=== PATIENT | female | born 1990 | race Caucasian/White ===

== ENCOUNTER 2016-07-30 08:07 | Emergency (ER) | payer BC ==
[~2016-07-30 08:07] MED LIST: ONDA4TAB10 PO
[2016-07-30 08:10] VITALS: BP 100/59
[2016-07-30] MEDS ORDERED: IV NORMAL SALINE 1,000ML 1,000 ML IV ONE (08:30)
[2016-07-30] MEDS ORDERED: ONDANSETRON PF 4 MG/2 ML VIAL. IV ONE (08:30)
[2016-07-30] MEDS ORDERED: FENTANYL PF 100 MCG/2 ML VIAL. IV ONE (08:45)
--- NOTE | 2016-07-30 08:46 | ED.ADGEN ---
Past History Past Medical History: Seizure Past Surgical History: No Surgical History Smoking: Non-smoker Alcohol Use: None Drug Use: None Adult General Chief Complaint Chief Complaint Abdominal pain, nausea and vomiting HPI HPI Patient is a 25 year old female who presents with upper abdominal pain and nausea and vomiting since waking this morning. Patient denies any fevers, no prior similar symptoms, no prior abdominal surgeries. Her last menstrual cycle was 3 weeks ago. She is not taking any symptom controlling medication. Patient reports she had a seizure yesterday, witnessed by her boyfriend, described as tonic-clonic. She did not lose her urine, reports she did bite her tongue. 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 She had a normal CT of her head in May of this year. She cannot recall her seizure medication. She cannot recall her neurologist name , she has a history of being noncompliant per the medical records. She has seen Dr. Gracia in the past. Review of Systems Review of Systems Constitutional: Denies fever or chills [] Eyes: Denies change in visual acuity, redness, or eye pain [] HENT: Denies nasal congestion or sore throat [] Respiratory: Denies cough or shortness of breath [] Cardiovascular: Denies chest pain GI: Denies bloody stools or diarrhea [] : Denies dysuria or hematuria [] Musculoskeletal: Denies back pain or joint pain [] Integument: Denies rash or skin lesions [] Neurologic: Denies headache, focal weakness or sensory changes [] Current Medications Current Medications Current Medications Medications (Trade) Dose Ordered Sig/Anant Start Time Stop Time Status Last Admin Dose Admin Diphenhydramine HCl (Benadryl) 25 mg 1X ONCE 07/30/16 09:40 07/30/16 09:41 DC 07/30/16 09:35 25 MG Fentanyl Citrate (Fentanyl 2ml Vial) 50 mcg 1X ONCE 07/30/16 08:45 07/30/16 08:46 DC 07/30/16 08:41 50 MCG Ketorolac Tromethamine (Toradol) 30 mg 1X ONCE 07/30/16 09:40 07/30/16 09:41 DC 07/30/16 09:35 30 MG Ondansetron HCl 4 mg 4 mg 1X ONCE 07/30/16 08:30 07/30/16 08:45 DC 07/30/16 08:37 4 MG Prochlorperazine Edisylate (Compazine) 10 mg 1X ONCE 07/30/16 09:40 07/30/16 09:41 DC 07/30/16 09:35 10 MG Sodium Chloride (Iv Sodium Chloride 0.9% 1,000ml) 1,000 ml @ 1,000 mls/hr 1X ONCE 07/30/16 08:30 07/30/16 09:29 DC 07/30/16 08:37 1,000 MLS/HR Allergies Allergies Allergies Coded Allergies Type Severity Reaction Last Updated Verified Penicillins Allergy Unknown 08/26/13 Yes Physical Exam Physical Exam Constitutional: Well developed, well nourished, no acute distress, non-toxic appearance. [] HENT: Normocephalic, atraumatic, bilateral external ears normal, oropharynx moist, no oral exudates, nose normal. [] Eyes: PERRLA, EOMI, conjunctiva normal, no discharge. [] Neck: Normal range of motion, no tenderness, supple, no stridor. [] Cardiovascular:Heart rate regular rhythm, no murmur [] Lungs & Thorax: Bilateral breath sounds clear to auscultation [] Abdomen: Bowel sounds normal, soft, no tenderness, no masses, no pulsatile masses. [] Skin: Warm, dry, no erythema, no rash. [] Back: No tenderness, no CVA tenderness. [] Extremities: No tenderness, no cyanosis, no clubbing, ROM intact, no edema. [] Neurologic: Alert and oriented X 3, normal motor function, normal sensory function, no focal deficits noted. [] Psychologic: Affect normal, judgement normal, mood normal. [] Current Patient Data Vital Signs Vital Signs Date Time Temp Pulse Resp B/P Pulse Ox O2 Delivery O2 Flow Rate FiO2 07/30/16 08:41 16 100 Room Air 07/30/16 08:10 98.0 85 Lab Results Laboratory Tests Test 07/30/16 08:25 07/30/16 09:49 Sodium Level 139mmol/L (136-145) Potassium Level 3.8mmol/L (3.5-5.1) Chloride Level 105mmol/L (98-107) Carbon Dioxide Level 27mmol/L (21-32) Anion Gap 7 (6-14) Blood Urea Nitrogen 9mg/dL (7-20) Creatinine 0.7mg/dL (0.6-1.0) Estimated GFR (Cockcroft-Gault) 102.8 BUN/Creatinine Ratio 13 (6-20) Glucose Level 99mg/dL (70-99) Calcium Level 8.8mg/dL (8.5-10.1) Total Bilirubin 0.7mg/dL (0.2-1.0) Aspartate Amino Transferase (AST) 15U/L (15-37) Alanine Aminotransferase (ALT) 17U/L (14-59) Alkaline Phosphatase 47U/L (46-116) Creatine Kinase 70U/L (26-192) Total Protein 7.7g/dL (6.4-8.2) Albumin 4.2g/dL (3.4-5.0) Albumin/Globulin Ratio 1.2 (1.0-1.7) Lipase 161U/L (73-393) POC Urine HCG, Qualitative hcg negative (Negative) EKG EKG [] Radiology/Procedures Radiology/Procedures [] Course & Med Decision Making Course & Med Decision Making Pertinent Labs and Imaging studies reviewed. (See chart for details) I reviewed patient's medical record. Her name of her medication is not listed in the chart. Labs performed, urinalysis, UCG, IV established, normal saline and Zofran given along with IV fentanyl. No seizure activity in ED, abdominal pain resolved, labs unremarkable. Pt developed headache. IV toradol, benadryl and compazine helped headache. Recommend f/u with PCP and take seizure meds. DC'd with zofran ODT. Final Impression Final Impression Nausea and vomiting Abdominal pain Seizures Problems: Dragon Disclaimer Dragon Disclaimer This electronic medical record was generated, in whole or in part, using a voice recognition dictation system. ZAINAB BASURTO MD Jul 30, 2016 08:46
[2016-07-30 09:04] LABS: ALBUMIN 4.2 g/dL (3.4-5.0); ALBUMIN/GLOBULIN RATIO 1.2 (1.0-1.7); CALCIUM 8.8 mg/dL (8.5-10.1); CREATININE 0.7 mg/dL (0.6-1.0); GFR 102.8; POTASSIUM 3.8 mmol/L (3.5-5.1); TOTAL BILIRUBIN 0.7 mg/dL (0.2-1.0); TOTAL PROTEIN 7.7 g/dL (6.4-8.2)
[2016-07-30] MEDS ORDERED: DIPHENHYDRAMINE 50 MG/ML VIAL IVP ONE (09:40)
[2016-07-30] MEDS ORDERED: PROCHLORPERAZINE 10 MG/2 ML VIAL. IV ONE (09:40)
[2016-07-30] MEDS ORDERED: KETOROLAC 30 MG/ML VIAL. IV ONE (09:40)
[2016-07-30] MEDS ORDERED: ONDA4TAB10 SL (10:07)
[2016-07-30 10:14] LABS: AMPHETAMINE/METHAMPHETAMINE NEG (NEG); BARBITURATES NEG (NEG); BENZODIAZEPINES NEG (NEG); CANNABINOIDS NEG (NEG); COCAINE NEG (NEG); METHADONE NEG (NEG); OPIATES NEG (NEG); PHENCYCLIDINE NEG (NEG)
[2016-07-30 10:17] LABS: BILIRUBIN,URINE NEG (NEG); CLARITY,URINE HAZY; COLOR,URINE YELLOW
[2016-07-30 10:18] LABS: BACTERIA,URINE FEW /HPF (0-FEW); NITRITE,URINE NEG (NEG); RBC,URINE RARE /HPF (0-2); SQUAMOUS EPITHELIAL CELL,UR MANY /LPF; UROBILINOGEN,URINE 0.2 mg/dL (0.2 mg/dL)
[2016-07-30 13:15] LABS: GLUCOSE,URINE NEG (NEG)
== END 2016-07-30 10:15 | disposition home or self-care (01) ==
LOC: ER 08:07
DX: R10.10 Upper abdominal pain, unspecified (principal); R11.2 Nausea with vomiting, unspecified; R56.9 Unspecified convulsions; Z91.19 Patient's noncompliance with other medical treatment and regimen; Z88.0 Allergy status to penicillin
CPT/HCPCS: 36415; 80053; 80305; 81001; 82550; 83690; 84703; 87086; 96361; 96374; 96375; 99284; J0780; J1200; J1885; J2405; J3010; 81025; G0481; J7030

== ENCOUNTER → 2016-11-26 | Outpatient (CLI) | payer BC ==
[~2016-11-26] MED LIST changes: +ONDA4TAB10 SL
--- NOTE | 2016-11-26 16:54 | RAD ---
CT head without IV contrast Indication: Nausea and migraine with disturbance of vision in the right eye. Headache for 3 days. Patient has frontal lobe epilepsy. Technique: CT head without IV contrast Comparison: Study from 06/04/2016 Findings: No pathologic extra-axial or intra-axial fluid collection. No acute intracranial bleed. The ventricles and basal cisterns are within normal limits. The bautista-white differentiation is preserved. Visualized orbits within normal limits. The visualized paranasal sinuses and mastoid air cells are clear. No calvarial lesions. Impression: No acute intracranial process on this noncontrast CT. PQRS Compliance Statement: One or more of the following individualized dose reduction techniques were utilized for this examination: 1. Automated exposure control 2. Adjustment of the mA and/or kV according to patient size 3. Use of iterative reconstruction technique
== END | disposition home or self-care (01) ==
LOC: CT 16:26
PROVIDERS: ATTEND Physician Assistant
DX: G43.809 Other migraine, not intractable, without status migrainosus (principal); H53.8 Other visual disturbances; G40.802 Other epilepsy, not intractable, without status epilepticus
CPT/HCPCS: 70450

== ENCOUNTER → 2017-03-04 | Outpatient (CLI) | payer BC ==
[~2017-03-04] MED LIST changes: +IOHEXOL 300 MG/ML 75 ML VIAL. ONE
--- NOTE | 2017-03-04 12:00 | RAD ---
CT of the neck with contrast, 03/04/2017: History: Anterior neck lump Multidetector CT imaging was performed following an IV bolus injection of iodinated contrast material. A radiopaque marker was placed on the skin surface anteriorly in the area of palpable concern. The thyroid gland contains multiple nodules. There is a 1.7 cm cystic appearing nodule just to the right of midline at the junction of the right lobe of the thyroid gland and the isthmus, which appears to correspond to the area of palpable concern. Just deep to this cystic nodule there is a heterogeneous solid nodule measuring 2.9 cm in diameter in the lower pole of the right lobe of the gland. Several other smaller nodules are present in the left thyroid lobe. Several small cervical lymph nodes are seen bilaterally without definite pathologic enlargement. The laryngeal region is unremarkable. No airway narrowing is seen. The parotid and submandibular glands are unremarkable. IMPRESSION: 1. Multinodular thyroid gland with a dominant solid nodule in the right lobe as described above. Correlation with sonographic findings is suggested. 2. No other significant neck abnormality is detected. PQRS Compliance Statement: One or more of the following individualized dose reduction techniques were utilized for this examination: 1. Automated exposure control 2. Adjustment of the mA and/or kV according to patient size 3. Use of iterative reconstruction technique
== END | disposition home or self-care (01) ==
LOC: CT 10:17
PROVIDERS: ATTEND Nurse Practitioner Family
DX: D48.1 Neoplasm of uncertain behavior of connective and other soft tissue (principal); E04.2 Nontoxic multinodular goiter; Z86.69 Personal history of other diseases of the nervous system and sense organs
CPT/HCPCS: 70491; Q9967

== ENCOUNTER → 2017-10-06 | Outpatient (CLI) | payer BC ==
[~2017-10-06] MED LIST changes: -IOHEXOL 300 MG/ML 75 ML VIAL. ONE
--- NOTE | 2017-10-06 12:30 | RAD ---
THYROID ULTRASOUND: 10/06/2017 9:00 AM Indication: 27 years old Female. Thyroid nodules. Comparison: Thyroid ultrasound March 06, 2017. FINDINGS: Right lobe: Normal in morphology and echotexture. No significant hyperemia. Size: 5.1 x 1.6 x 2.3 cm Nodules: 1. There is a 2.8 x 1.5 x 2.1 cm solid, circumscribed nodule which is isoechoic to hypoechoic in echogenicity. No significant internal echogenic foci are identified. The nodule is taller than it is wide. This nodule is within the mid to inferior thyroid lobe. 2. There is a 1.5 x 0.6 x 0.7 cm solid, circumscribed nodule in the inferior right thyroid lobe, adjacent to the isthmus. The nodule is rounded morphology. Left lobe: Normal in morphology and echotexture. Size: 4.4 x 1.7 x 1.4 cm Nodules: 1. There is a 1.2 x 0.8 x 0.7 cm solid, circumscribed mass which is hypoechoic without internal echogenic foci. The nodule is wider than it is tall. Isthmus: Normal measuring 2.2 mm IMPRESSION: Multiple thyroid nodules are present within the thyroid gland, as detailed above. Images from prior ultrasound are not available for direct comparison. Given the provided measurements on the technologist worksheet from prior examination from March 06, 2017, there may be mild increase in size of the right thyroid nodule, previously reported to measure 2.6 x 1.4 x 1.2 cm. Additional nodules appear stable. Electronically signed by: Rylie Bro MD (10/06/2017 12:27 PM) [facility]
== END | disposition home or self-care (01) ==
LOC: US 08:54
PROVIDERS: ATTEND Nurse Practitioner Family
DX: E04.2 Nontoxic multinodular goiter (principal)
CPT/HCPCS: 76536

== ENCOUNTER → 2017-11-03 | Outpatient (CLI) | payer BC ==
[~2017-11-03] MED LIST changes: +IOHEXOL 240 MG/ML 50ML VIAL. ONE; +IOHEXOL 300 MG/ML 75 ML VIAL. IV ONE
--- NOTE | 2017-11-03 14:44 | RAD ---
CT ABD PELV W/ORAL IV CONTRAST Indication: LUQ LLQ PAIN, LMP 7-15-18,OMNI 240 30ML IN BREEZA, OMNI 300 75ML Exposure: One or more of the following individualized dose reduction techniques were utilized for this examination: 1. Automated exposure control 2. Adjustment of the mA and/or kV according to patient size 3. Use of iterative reconstruction technique. Comparison: May 23, 2016 Contrast: Intravenous contrast was given. Oral contrast was given. FINDINGS: Lower thorax: Lung bases are clear. Liver: Small hypodense lesions identified in the liver, less than 1 cm. Appears similar as prior exam. Nonspecific, but would typically be benign. Spleen: Unremarkable Pancreas: Unremarkable Adrenals:No evidence of mass. Kidneys: Tiny subcentimeter low-density lesion, right kidney, lower pole, stable, too small to characterize but would most commonly represents a cyst. Gallbladder: No calcified stone Lymph nodes: No significant enlargement Vessels: * Aorta: Nonaneurysmal * Mesenteric: Patent * Portal venous: Patent GI tract: Contrast has not reached the colon. Mild to moderate retained stool in the colon. No evidence of an acute colitis. No bowel obstruction. Appendix is normal. Reproductive organs: There appears to be a collapsing left ovarian cyst measuring about 15 mm diameter. 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 Urinary bladder: Unremarkable. Peritoneum: Mild free pelvic fluid. Abdominal wall:Unremarkable Spine: Small defect at the anterosuperior corner of L4, compatible with a small limbus vertebra, unchanged. Bones: No destructive process identified. IMPRESSION: 1. Mild free pelvic fluid, may just be physiologic. There is evidence of a small collapsing left ovarian cyst. 2. Small hypodense subcentimeter liver lesions and right renal lesion are stable. 3. [id number] retained stool in the colon. Electronically signed by: Grupo Casper MD (11/03/2017 2:40 PM) [facility]
== END | disposition home or self-care (01) ==
LOC: CT 13:07
PROVIDERS: ATTEND Physician Assistant
DX: N83.292 Other ovarian cyst, left side (principal); K76.89 Other specified diseases of liver; N28.89 Other specified disorders of kidney and ureter; G43.809 Other migraine, not intractable, without status migrainosus; G40.802 Other epilepsy, not intractable, without status epilepticus; Z87.891 Personal history of nicotine dependence
CPT/HCPCS: 74177; Q9966; Q9967

== ENCOUNTER 2017-11-27 12:02 | Emergency (ER) | payer BC ==
[~2017-11-27] VITALS: Ht 160 cm; Wt 53.4 kg
[~2017-11-27 12:02] MED LIST changes: -IOHEXOL 240 MG/ML 50ML VIAL. ONE; -IOHEXOL 300 MG/ML 75 ML VIAL. IV ONE
[2017-11-27] MEDS ORDERED: ONDANSETRON PF 4 MG/2 ML VIAL. IV ONE (12:45)
[2017-11-27 12:49] LABS: BASO % 0 % (0-3); EOS # 0.1 x10^3/uL (0.0-0.7); EOS % 1 % (0-3); HEMATOCRIT 41.8 % (36.0-47.0); HEMOGLOBIN 14.5 g/dL (12.0-15.5); LYMPH # 2.7 x10^3/uL (1.0-4.8); LYMPH % 25 % (24-48); MEAN CORPUSCULAR HEMOGLOBIN 33 pg (25-35); MEAN CORPUSCULAR HGB CONC 35 g/dL (31-37); MEAN CORPUSCULAR VOLUME 94 fL (79-100); MONO # 0.8 x10^3/uL (0.0-1.1); MONO % 7 % (0-9); NEUT # 7.3 x10^3uL (1.8-7.7); NEUT % 68 % (31-73); PLATELET COUNT 251 x10^3/uL (140-400); RED BLOOD COUNT 4.43 x10^6/uL (3.50-5.40); RED CELL DISTRIBUTION WIDTH 12.7 % (11.5-14.5); WHITE BLOOD COUNT 10.9 x10^3/uL (4.0-11.0)
[2017-11-27 12:59] LABS: ALBUMIN 4.2 g/dL (3.4-5.0); CALCIUM 9.5 mg/dL (8.5-10.1); CREATININE 0.7 mg/dL (0.6-1.0); DIRECT BILIRUBIN 0.2 mg/dL (0.0-0.2); GFR 101.1; POTASSIUM 3.5 mmol/L (3.5-5.1); PREG TEST PT QUAL NEGATIVE (NEG); TOTAL BILIRUBIN 0.8 mg/dL (0.2-1.0); TOTAL PROTEIN 7.7 g/dL (6.4-8.2)
[2017-11-27 12:59] LABS: BACTERIA,URINE FEW /HPF (0-FEW); BILIRUBIN,URINE NEG (NEG); CLARITY,URINE HAZY; COLOR,URINE YELLOW; GLUCOSE,URINE NEG (NEG); NITRITE,URINE NEG (NEG); RBC,URINE 0 /HPF (0-2); SQUAMOUS EPITHELIAL CELL,UR MANY /LPF; UROBILINOGEN,URINE 0.2 mg/dL (0.2 mg/dL); WBC,URINE OCC /HPF (0-4)
[2017-11-27] MEDS ORDERED: AZITHROMYCIN 250 MG TABLET. PO ONE (13:00)
[2017-11-27] MEDS ORDERED: IV NORMAL SALINE 1,000ML 1,000 ML IV ONE (13:00)
[2017-11-27] MEDS ORDERED: METOCLOPRAMIDE HCL 10 MG/2 ML VIAL. ONE (13:10)
[2017-11-27] MEDS ORDERED: METOCLOPRAMIDE HCL 10 MG/2 ML VIAL. IV ONE (13:15)
[2017-11-27] MEDS ORDERED: IOHEXOL 300 MG/ML 75 ML VIAL. IV ONE (13:30)
--- NOTE | 2017-11-27 13:32 | PHYS DOC ---
Past History Past Medical History: Migraines, Seizure Past Surgical History: No Surgical History Smoking: Non-smoker Alcohol Use: Occasionally Drug Use: None Adult General Chief Complaint Chief Complaint: ABDOMINAL PAIN HPI HPI This is a pleasant 27-year-old female presenting to the emergency department today with left lower quadrant abdominal pain. Pain is been present for 3 weeks. It comes and goes. It is a sharp shooting pain. Currently he is moderate to severe. She denies sexual exposure to STDs, changes in her vaginal discharge , foul-smelling discharge. ROS: She denies being . She denies pain on urination or increased urinary frequency. She denies fevers chills nausea or vomiting. All other review of systems is negative unless otherwise noted in history of present illness. ED course: 27-year-old female presenting with left lower quadrant abdominal pain. On arrival she is afebrile with a mildly tachycardic heart rate. On examination she has a soft nontender abdomen. Negative McBurney's point. Negative Aparicio sign. Nondistended. No rebound tenderness or guarding. Blood work performed. Pelvic exam performed in the presence of a female nurse. Pelvic exam shows mild amount of white discharge. No cervical motion tenderness. Wet prep and gonorrhea and chlamydia testing sent. Patient is allergic to penicillin. We will empirically treat. Given the patient's penicillin allergy, we will not empirically give her due to concern for crossreactivity Rocephin. We will give azithromycin. CT and ultrasound ordered. Patient was given IV fluids nausea and pain medication. Blood work is unremarkable. After having a long discussion about the patient's penicillin allergy she states that she gets mildly nauseous with it. We will go ahead and give her Rocephin. We monitored her after the Rocephin and she had no reaction. CT and ultrasound report sat down and explained the patient in person after printed off. Many chronic follow- up findings that she'll have to follow-up with her primary care physician about. Repeat abdominal exam shows a soft nontender abdomen.The patient has been examined and was not found to have an emergency medical condition. The patient was then discharged home in stable condition to follow up with their primary care physician over the next 2-3 days. They were to return if their symptoms worsened or if they were concerned for any reason. They were also instructed to return to the emergency department if they were unable to get the recommended and appropriate follow-up. [id number] discharge instructions and return precautions were given. Patient's questions were answered to their satisfaction. Patient is comfortable with plan. Review of Systems Review of Systems SEE ABOVE. Current Medications Current Medications Current Medications Medications (Trade) Dose Ordered Sig/Anant Start Time Stop Time Status Last Admin Dose Admin Azithromycin (Zithromax) 1,000 mg 1X ONCE 11/27/17 13:00 11/27/17 13:02 DC Fentanyl Citrate (Fentanyl 2ml Vial) 50 mcg PRN Q30MIN PRN 11/27/17 12:45 11/27/17 12:57 50 MCG Iohexol (Omnipaque 300 Mg/ml) 75 ml 1X ONCE 11/27/17 13:30 11/27/17 13:31 DC Metoclopramide HCl (Reglan Vial) 10 mg STK-MED ONCE 11/27/17 13:10 11/27/17 13:11 DC Ondansetron HCl (Zofran) 4 mg 1X ONCE 11/27/17 12:45 11/27/17 12:46 DC 11/27/17 12:41 4 MG Sodium Chloride 1,000 ml @ 1,000 mls/hr 1X ONCE 11/27/17 13:00 11/27/17 13:59 Allergies Allergies Allergies Coded Allergies Type Severity Reaction Last Updated Verified acetaminophen Allergy Intermediate 03/04/17 Yes hydrocodone Allergy Intermediate 03/04/17 Yes Penicillins Allergy Unknown 08/26/13 Yes Physical Exam Physical Exam SEE ABOVE Constitutional: Well developed, well nourished, no acute distress, non-toxic appearance. [] HENT: Normocephalic, atraumatic, bilateral external ears normal, oropharynx moist, no oral exudates, nose normal. [] Eyes: PERRLA, EOMI, conjunctiva normal, no discharge. [] Neck: Normal range of motion, no tenderness, supple, no stridor. [] Cardiovascular:Heart rate regular rhythm, no murmur [] Lungs & Thorax: Bilateral breath sounds clear to auscultation [] Abdomen: Bowel sounds normal, soft, no tenderness, no masses, no pulsatile masses. [] Skin: Warm, dry, no erythema, no rash. [] Back: No tenderness, no CVA tenderness. [] Extremities: No tenderness, no cyanosis, no clubbing, ROM intact, no edema. [] Neurologic: Alert and oriented X 3, normal motor function, normal sensory function, no focal deficits noted. [] Psychologic: Affect normal, judgement normal, mood normal. [] Current Patient Data Vital Signs Vital Signs Date Time Temp Pulse Resp B/P (MAP) Pulse Ox O2 Delivery O2 Flow Rate FiO2 11/27/17 12:57 16 98 Room Air 11/27/17 12:20 98.3 111 Lab Results Laboratory Tests Test 11/27/17 12:27 11/27/17 12:34 Urine Collection Type Unknown Urine Color Yellow Urine Clarity Hazy Urine pH 6.0 Urine Specific [place] 1.025 Urine Protein Neg (NEG-TRACE) Urine Glucose (UA) Neg mg/dL (NEG) Urine Ketones (Stick) Neg mg/dL (NEG) Urine Blood Neg (NEG) Urine Nitrite Neg (NEG) Urine Bilirubin Neg (NEG) Urine Urobilinogen Dipstick 0.2 mg/dL (0.2 mg/dL) Urine Leukocyte Esterase Neg (NEG) Urine RBC 0 /HPF (0-2) Urine WBC Occ /HPF (0-4) Urine Squamous Epithelial Cells Many /LPF Urine Bacteria Few /HPF (0-FEW) Urine Mucus Marked /LPF White Blood Count 10.9 x10^3/uL (4.0-11.0) Red Blood Count 4.43 x10^6/uL (3.50-5.40) Hemoglobin 14.5 g/dL (12.0-15.5) Hematocrit 41.8 % (36.0-47.0) Mean Corpuscular Volume 94 fL (79-100) Mean Corpuscular Hemoglobin 33 pg (25-35) Mean Corpuscular Hemoglobin Concent 35 g/dL (31-37) Red Cell Distribution Width 12.7 % (11.5-14.5) Platelet Count 251 x10^3/uL (140-400) Neutrophils (%) (Auto) 68 % (31-73) Lymphocytes (%) (Auto) 25 % (24-48) Monocytes (%) (Auto) 7 % (0-9) Eosinophils (%) (Auto) 1 % (0-3) Basophils (%) (Auto) 0 % (0-3) Neutrophils # (Auto) 7.3 x10^3uL (1.8-7.7) Lymphocytes # (Auto) 2.7 x10^3/uL (1.0-4.8) Monocytes # (Auto) 0.8 x10^3/uL (0.0-1.1) Eosinophils # (Auto) 0.1 x10^3/uL (0.0-0.7) Basophils # (Auto) 0.0 x10^3/uL (0.0-0.2) Sodium Level 142 mmol/L (136-145) Potassium Level 3.5 mmol/L (3.5-5.1) Chloride Level 104 mmol/L (98-107) Carbon Dioxide Level 31 mmol/L (21-32) Anion Gap 7 (6-14) Blood Urea Nitrogen 7 mg/dL (7-20) Creatinine 0.7 mg/dL (0.6-1.0) Estimated GFR (Cockcroft-Gault) 101.1 Glucose Level 101 mg/dL (70-99) H Calcium Level 9.5 mg/dL (8.5-10.1) Total Bilirubin 0.8 mg/dL (0.2-1.0) Direct Bilirubin 0.2 mg/dL (0.0-0.2) Aspartate Amino Transferase (AST) 17 U/L (15-37) Alanine Aminotransferase (ALT) 25 U/L (14-59) Alkaline Phosphatase 63 U/L (46-116) Total Protein 7.7 g/dL (6.4-8.2) Albumin 4.2 g/dL (3.4-5.0) Lipase 146 U/L (73-393) Serum Test, Qualitative Negative (NEG) Microbiology 11/27/17 Wet Prep - Final, Complete EKG EKG [] Radiology/Procedures Radiology/Procedures [] Course & Med Decision Making Course & Med Decision Making Pertinent Labs and Imaging studies reviewed. (See chart for details) [] Dragon Disclaimer Dragon Disclaimer This electronic medical record was generated, in whole or in part, using a voice recognition dictation system. Departure Departure: Impression: Primary Impression: Abdominal pain Disposition: 01 HOME, SELF-CARE Condition: STABLE Referrals: NAMEJIM (PCP) Patient Instructions: Abdominal Pain, Women Additional Instructions: Thank you for allowing us to participate in your care today. Return to the emergency department you have any new or worsening symptoms, or if you are concerned for any reason. Return to emergency department if you have any new or concerning symptoms including but not limited to fever, chills, nausea, vomiting, intractable pain, any new rashes, chest pain, shortness of air , uncontrolled bleeding, difficulty breathing, and/or vision loss. Follow up with your primary care physician within 3 days. Call your Primary Doctor tomorrow and inform them of your visit today. If you do not have a primary care provider we are happy to provide you with a list of our primary care providers contact information. This condition should be evaluated by your primary care physician and any recommended consulting services for continued management within 2-3 days after discharge. If at any time, you are having difficulty getting into your primary care doctor or a specialist, return to the emergency department. You may have been prescribed medication or given medication in the emergency department that can change in your level of thinking and ability to operate machinery. Many prescribed medications can cause this. Some commonly prescribed medications include hydrocodone, ativan, and benadryl. Be sure to check with your pharmacist and ask if the medications you've prescribed can affect your level of consciousness. I recommend not operating heavy machinery or driving while on medication such as these. Scripts Ondansetron Hcl (ZOFRAN) 4 Mg Tablet 1 TAB PO PRN Q6HRS PRN for NAUSEA, #6 TAB Prov: SUNNY SLOAN MD 11/27/17 Ibuprofen (IBUPROFEN) 400 Mg Tablet 1 TAB PO PRN Q8HRS PRN for PAIN, #20 TAB Prov: SUNNY SLOAN MD 11/27/17 SUNNY SLOAN MD Nov 27, 2017 13:32
[2017-11-27] MEDS ORDERED: IBUP400T18 PO (13:48)
[2017-11-27] MEDS ORDERED: ONDA4TAB7 PO (13:48)
--- NOTE | 2017-11-27 14:13 | RAD ---
US PELVIS W/TV History: Left lower quadrant pain and nausea Comparison: September 11, 2010 Findings: Multiple transabdominal sonographic images of the pelvis are submitted. Uterus measured 7.3 x 3.8 x 6.1 cm. Right ovary measures about 3.2 x 1.9 x 1.8 cm with normal low resistance vascularity. Left ovary measured 1.8 x 1.5 x 2.2 cm with normal low resistance vascularity. Transvaginal ultrasound: Multiple transvaginal sonographic images of the pelvis are submitted. Uterus measured 7.4 x 7.2 x 4.2 cm. There is mild free fluid in the pelvis. Right ovary measured 1.8 x 1.7 x 2.9 cm. There is normal low resistance vascularity of the right ovary. Dominant follicle of the right ovary is estimated about 1.1 cm. Left ovary measured 1.9 x 2.7 x 2.4 cm with normal low resistance vascularity, a few small follicles present. Endometrium measured 0.6 cm in thickness. Impression: 1. There is mild nonspecific free fluid in the pelvis. No other significant abnormality is demonstrated. Electronically signed by: Be Rivera MD (11/27/2017 2:10 PM) [id number]
--- NOTE | 2017-11-27 14:22 | RAD ---
EXAM: Abdomen and pelvis CT with intravenous contrast. HISTORY: Left lower quadrant pain. TECHNIQUE: Computed tomographic images of the abdomen and pelvis were obtained following the administration of 75 cc Omnipaque 300 intravenous contrast. Multiplanar reformatting was performed. *One or more of the following individualized dose reduction techniques were utilized for this examination: 1. Automated exposure control. 2. Adjustment of the mA and/or kV according to patient size. 3. Use of iterative reconstruction technique. COMPARISON: 11/03/2017. FINDINGS: Evaluation of the lower thorax demonstrates a focus of subsegmental atelectasis along the lateral left lower lobe. There is no infiltrate or effusion. There is a 5 mm hypodense lesion within the lateral right hepatic dome, a 5 mm hypodense lesion within the lateral inferior right hepatic lobe and 6 mm hypodense lesion within the inferior right hepatic lobe. There is slight fatty infiltration of the liver along the falciform ligament. The gallbladder, pancreas, spleen, adrenal glands and kidneys are unremarkable. The visualized portions of the appendix are unremarkable. No abnormally thickened or dilated loop of bowel is seen. The uterus is retroverted. There are multiple ovarian follicles and there are elongated fluid density structures within the adnexal regions suggesting bilateral hydrosalpinx. There is a small amount of nonspecific pelvic free fluid. There is no lymphadenopathy. There is no suspicious osseous lesion. There is an incidental L4 limbus vertebrae. IMPRESSION: 1. Small amount of nonspecific pelvic free fluid. This can be physiologic in a premenopausal female. This is slightly decreased compared to the prior study. 2. Small bilateral ovarian follicles. There may be bilateral hydrosalpinx. 3. Stable small hypodense lesions within the liver. In the absence of known malignancy, these are likely cysts or hemangiomas. Electronically signed by: Juliet Gordillo MD (11/27/2017 2:18 PM) [place] [id number]
[2017-11-27] MEDS ORDERED: cefTRIAXone IM 250 MG VIAL IM ONE (14:45)
[2017-11-27 15:11] VITALS: BP 108/65
[2017-11-28 15:08] LABS: CHLAMYDIA PROBE Negative (Negative)
== END 2017-11-27 15:13 | disposition home or self-care (01) ==
LOC: ER 12:02
DX: R10.32 Left lower quadrant pain (principal); R11.0 Nausea; R00.0 Tachycardia, unspecified; G43.909 Migraine, unspecified, not intractable, without status migrainosus; Z88.6 Allergy status to analgesic agent; Z88.5 Allergy status to narcotic agent; Z88.0 Allergy status to penicillin
CPT/HCPCS: 36415; 74177; 76830; 76856; 80048; 80076; 81001; 83690; 84703; 85025; 87491; 87591; 96372; 96374; 96375; 99285; J0456; J0696; J2405; J2765; J3010; Q0111; Q9967; J7030

== ENCOUNTER → 2018-04-08 | Outpatient (CLI) | payer BC ==
[~2018-04-08] MED LIST changes: +IBUP400T18 PO; +ONDA4TAB7 PO
--- NOTE | 2018-04-08 10:19 | RAD ---
EXAM: CT Abdomen and Pelvis without IV contrast CLINICAL HISTORY: LEFT FLANK/LLQ PAIN ONSET 1 AM. SLIGHT HEMATURIA COMPARISON: 11/27/2018, 11/03/2017 TECHNIQUE: Helical CT of the abdomen and pelvis without intravenous contrast. Axial, coronal and sagittal reformatted images were generated. PQRS compliance statement - One or more of the following individualized dose reduction techniques were utilized for this study: 1. Automated exposure control 2. Adjustment of the mA and/or kV according to patient size 3. Use of iterative reconstruction technique FINDINGS: Lack of intravenous contrast limits evaluation of solid organs, vasculature, and lymph nodes. Lower chest: Lung bases are clear. Abdomen and Pelvis: No focal liver lesion. Gallbladder is normal. No biliary ductal dilatation. Pancreas is unremarkable. Spleen is normal. Adrenal glands are unremarkable. No focal renal lesion. No hydronephrosis or hydroureter. No renal tract calculi. The appendix is not definitively seen. Moderate colonic stool content. No small or large bowel dilatation. No abdominal or pelvic lymphadenopathy. Small volume free pelvic fluid with a slightly tubular orientation posterior to the uterus. Uterus is prominent. The endometrium is thickened. Bones: Osseous structures are stable including L4 limbus vertebra IMPRESSION: 1. No renal tract calculi. 2. Uterus is prominent with endometrial thickening, this can be correlated with phase of cycle. 3. Small volume free pelvic fluid with a component that is tubular in orientation posterior to the uterus. The uterus and this fluid collection can be further assessed by pelvic ultrasound to exclude hydrosalpinx. Electronically signed by: Gage Santana MD (04/08/2018 10:15 AM) [facility]
== END | disposition home or self-care (01) ==
LOC: CT 09:28
PROVIDERS: ATTEND Nurse Practitioner Family
DX: R93.89 Abnormal findings on diagnostic imaging of other specified body structures (principal)
CPT/HCPCS: 74176